=== PATIENT | male | born 1965 | race Two or more races ===

== ENCOUNTER 2023-07-12 08:12 | Outpatient (AMB) | payer OTHER, SELFPAY ==
[2023-07-12 08:14] VITALS: PULSE 68; O2SAT 99; BMI 29.2
--- NOTE | 2023-07-12 08:14 | MHC.OFFVIS ---
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 It started about 6 mths ago . It is mostly with action and posture. 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 No tremors in his left hand or legs or head or voice. No weakness. It is affecting his job .No difficulty eating with hands or holding a cup.No difficulty with dressing or personal hygiene. No known F h/o tremors. He has chronic sleep issues, has loud snoring, witnessed apneas and gasping arousals. He had asleep study many years ago- thinks it was abnormal [facility] Medical History (Updated 07/12/23 @ 08:53 by Torri Lawson MD) Coarse tremors Hypersomnia Witnessed apneic spells Loud snoring Asthma Esophagitis HTN (hypertension) Surgical History Hx of vasectomy Hx of appendectomy Family History Father Colon cancer Hypercholesteremia Hypertension Diabetes Social History Alcohol intake: current Alcohol intake frequency: holidays/special occasions only Patient Tobacco Use Status: Never used Tobacco Use of substances other than those prescribed or required for medical reasons: No Review of Systems Const Denies no additional complaints and Reports snoring Eyes Reports blurry vision Resp Reports cough and Reports snoring Neuro Reports memory loss Psych Reports memory loss Physical Exam Vital Signs: Last Vital Signs Pulse 68 07/12/23 08:14 Pulse Ox 99 07/12/23 08:14 Oxygen Delivery Method Room Air 07/12/23 08:14 BMI result Body Mass Index 29.2 Const General: cooperative, healthy appearing, comfortable and no acute distress Nutritional Appearance: average body habitus Orientation/consciousness: patient oriented x3 Eyes Pupils: Equal, round and reactive pupils present Neck Neck: Yes no meningeal signs Neuro Other: no tremors on exam today Mild increased tone in right UE Normal facial expression and blink Gait normal Mallampatti grade 4 General: patient oriented x3, moves all extremities, no meningeal signs and no focal motor deficits Cranial nerves: Yes Facial sensation intact/muscles of mastication intact, Yes Equal, round and reactive pupils present, Yes Bilaterally intact EOM present, Yes Nystagmus not present, Yes Normal facial strength present, Yes Midline tongue present, Yes Symmetric palate elevation present and Yes Ability to bilaterally elevate shoulders present Cognition (Neuro): normal cognition Gait exam (Neuro): Normal gait present Motor exam (neuro): 5/5 motor strength present throughout and Normal motor muscle tone present throughout Deep tendon reflexes (DTR's): Right triceps reflex intensity grade: 2+, Left triceps reflex intensity grade: 2+, Rt Biceps (C5, C6): 2+, Left biceps reflex intensity grade: 2+, Right brachioradialis reflex intensity grade: 2+, Left brachioradialis reflex intensity grade: 2+, Right patellar reflex intensity grade: 2+ and Left patellar reflex intensity grade: 2+ Coordination: [id number] test normal Assessment & Plan Assessment & Plan (1) Coarse tremors: Code(s): G25.2 - Other specified forms of tremor (2) Hypersomnia: Code(s): G47.10 - Hypersomnia, unspecified (3) Loud snoring: Code(s): R06.83 - Snoring (4) Witnessed apneic spells: Code(s): R06.81 - Apnea, not elsewhere classified Plan I will trial him on propranolol 10-20 mg qam Hold amlodipine Monitor BP Home sleep test to r/o sleep apnea. Orders: Orders RT home sleep study Today G47.10 - Hypersomnia, unspecified, R06.81 - Apnea, not elsewhere classified, R06.83 - Snoring Medications: New propranolol 1-2 tabs orally qam; 60 tabs 3RF Coding Level of Care Code New Pt Level 4 (18557) Diagnoses Coarse tremors G25.2 Hypersomnia G47.10 Loud snoring R06.83 Witnessed apneic spells R06.81
== END 2023-07-12 08:56 | disposition home or self-care (01) ==
PROVIDERS: Visit Provider Psychiatry & Neurology Neurology
DX: G25.2 Other specified forms of tremor (principal); G47.10 Hypersomnia, unspecified; R06.83 Snoring; R06.81 Apnea, not elsewhere classified
CPT/HCPCS: 99204

== ENCOUNTER → 2023-07-12 08:12 | Outpatient (BNVA) | payer OTHER, SELFPAY | PROVIDERS: Visit Provider Psychiatry & Neurology Neurology | DX: G25.2 Other specified forms of tremor (principal); G47.10 Hypersomnia, unspecified; R06.83 Snoring; R06.81 Apnea, not elsewhere classified | CPT/HCPCS: 99202 ==

== ENCOUNTER → 2023-08-21 14:51 | Outpatient (REF) | payer OTHER, SELFPAY | LOC: HO.SL 14:51 | PROVIDERS: PCP Internal Medicine; Visit Provider Psychiatry & Neurology Neurology | DX: R06.83 Snoring (principal); G47.10 Hypersomnia, unspecified; G47.33 Obstructive sleep apnea (adult) (pediatric) | CPT/HCPCS: 95806 ==

== ENCOUNTER → 2023-08-21 14:58 | Outpatient (BNV) | payer SELFPAY | PROVIDERS: PCP Internal Medicine; Visit Provider Psychiatry & Neurology Neurology | DX: G47.33 Obstructive sleep apnea (adult) (pediatric) (principal) | CPT/HCPCS: 95806 ==

== ENCOUNTER 2023-11-07 09:12 | Outpatient (AMB) | payer OTHER, SELFPAY ==
--- NOTE | 2023-11-07 09:13 | MHC.OFFVIS ---
Intake Vital Signs 11/07/23 09:15 Height 5 ft 7 in Weight 189 lb BMI 29.6 BP 172/102 H Blood Pressure Location Rt brachial Position Sitting Respiration 17 Pulse 67 Pulse Source Pulse Oximeter Pulse Oximetry (%) 98 Oxygen Delivery Method Room Air Intake Visit Reasons: 3m f/u Tremors - Unable to Conf VM Full Intake Note: Pt presents to the office for a 3 month follow up for tremors. Pt reports his sx are slightly worse than at his last visit. 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 It started about 9 mths ago . His tremors are the same. It is mostly with action and posture. 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 No tremors in his left hand or legs or head or voice. No weakness. It is affecting his job .No difficulty eating with hands or holding a cup.No difficulty with dressing or personal hygiene. No known F h/o tremors. His Home sleep test was c/w mild sleep apnea AHI was 11 and oxygen chris was 88%.He is waiting for his CPAP. [facility] Medical History (Updated 11/07/23 @ 09:37 by Torri Lawson MD) Obstructive sleep apnea hypopnea, mild Coarse tremors Hypersomnia Witnessed apneic spells Loud snoring Asthma Esophagitis HTN (hypertension) Surgical History Hx of vasectomy Hx of appendectomy Family History Father Colon cancer Hypercholesteremia Hypertension Diabetes Social History Alcohol intake: current Alcohol intake frequency: holidays/special occasions only Patient Tobacco Use Status: Never used Tobacco Physical Exam Vital Signs: Last Vital Signs Pulse 67 11/07/23 09:15 Resp 17 11/07/23 09:15 BP 172/102 H 11/07/23 09:15 Pulse Ox 98 11/07/23 09:15 Oxygen Delivery Method Room Air 11/07/23 09:15 BMI result Body Mass Index 29.6 Const General: cooperative, healthy appearing, comfortable and no acute distress Nutritional Appearance: average body habitus Orientation/consciousness: patient oriented x3 Eyes Pupils: Equal, round and reactive pupils present Neck Neck: Yes no meningeal signs Neuro Other: no tremors on exam today Mild increased tone in right UE Normal facial expression and blink Gait normal Mallampatti grade 4 General: patient oriented x3, moves all extremities, no meningeal signs and no focal motor deficits Cranial nerves: Yes Facial sensation intact/muscles of mastication intact, Yes Equal, round and reactive pupils present, Yes Bilaterally intact EOM present, Yes Nystagmus not present, Yes Normal facial strength present, Yes Midline tongue present, Yes Symmetric palate elevation present and Yes Ability to bilaterally elevate shoulders present Cognition (Neuro): normal cognition Gait exam (Neuro): Normal gait present Motor exam (neuro): 5/5 motor strength present throughout and Normal motor muscle tone present throughout Coordination: [id number] test normal Assessment & Plan Assessment & Plan (1) Coarse tremors: Code(s): G25.2 - Other specified forms of tremor (2) Obstructive sleep apnea hypopnea, mild: Code(s): G47.33 - Obstructive sleep apnea (adult) (pediatric) Plan: AHI 11 O2 chris 88% Plan Increase propranolol to ER 60mg qd Monitor BP Start AutoPAP 5-20 - patient will call Home care company Medications: New propranolol ER 60 mg PO DAILY 30 caps 6RF Discontinued propranolol Discontinued Reason: Doctor's Order 1-2 tabs orally qam; 60 tabs 3RF Coding Level of Care Code Est Pt Level 4 (62856) Diagnoses Coarse tremors G25.2 Obstructive sleep apnea hypopnea, mild G47.33
[2023-11-07 09:15] VITALS: BP 172/102; PULSE 67; RESP 17; O2SAT 98; BMI 29.6
== END 2023-11-07 09:40 | disposition home or self-care (01) ==
PROVIDERS: PCP Internal Medicine; Visit Provider Psychiatry & Neurology Neurology
DX: G25.2 Other specified forms of tremor (principal); G47.33 Obstructive sleep apnea (adult) (pediatric)
CPT/HCPCS: 99214

== ENCOUNTER → 2023-11-07 09:12 | Outpatient (BNVA) | payer OTHER, SELFPAY | PROVIDERS: PCP Internal Medicine; Visit Provider Psychiatry & Neurology Neurology | DX: G25.2 Other specified forms of tremor (principal); G47.33 Obstructive sleep apnea (adult) (pediatric) | CPT/HCPCS: 99212 ==

== ENCOUNTER 2024-03-09 08:21 | Outpatient (AMB) | payer OTHER, SELFPAY ==
--- NOTE | 2024-03-09 08:27 | A.OFFVIS_ITS ---
Vital Signs 03/09/24 08:28 Height 5 ft 7 in Weight 189 lb BMI 29.6 BP 156/90 H Blood Pressure Location Rt brachial Position Sitting Respiration 16 Pulse 71 Pulse Source Pulse Oximeter Pulse Oximetry (%) 99 Oxygen Delivery Method Room Air Intake Visit Reasons: 4 mnts f/u - Conf w/address Intake Note: Pt presents for 3 month follow up for coarse tremors. 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 His tremors are better with propranolol. It is mostly with action and posture. 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 No weakness. It is affecting his job .No difficulty eating with hands or holding a cup.No difficulty with dressing or personal hygiene. No known F h/o tremors. His Home sleep test was c/w mild sleep apnea AHI was 11 and oxygen chris was 88%.He started using CPAP - and is feeling better. [facility] Medical History Obstructive sleep apnea hypopnea, mild Coarse tremors Hypersomnia Witnessed apneic spells Loud snoring Asthma Esophagitis HTN (hypertension) Surgical History Hx of vasectomy Hx of appendectomy Family History Father Colon cancer Hypercholesteremia Hypertension Diabetes Social History Alcohol intake: current Alcohol intake frequency: holidays/special occasions only Patient Tobacco Use Status: Never used Tobacco Physical Exam Vital Signs: Last Vital Signs Pulse 71 03/09/24 08:28 Resp 16 03/09/24 08:28 BP 156/90 H 03/09/24 08:28 Pulse Ox 99 03/09/24 08:28 Oxygen Delivery Method Room Air 03/09/24 08:28 BMI result Body Mass Index 29.6 Const General: cooperative, healthy appearing, comfortable and no acute distress Nutritional Appearance: average body habitus Orientation/consciousness: patient oriented x3 Eyes Pupils: Equal, round and reactive pupils present Neck Neck: Yes no meningeal signs Neuro Other: no tremors on exam today Mild increased tone in right UE Normal facial expression and blink Gait normal Mallampatti grade 4 General: patient oriented x3, moves all extremities, no meningeal signs and no focal motor deficits Cranial nerves: Yes Facial sensation intact/muscles of mastication intact, Yes Equal, round and reactive pupils present, Yes Bilaterally intact EOM present, Yes Nystagmus not present, Yes Normal facial strength present, Yes Midline tongue present, Yes Symmetric palate elevation present and Yes Ability to bilaterally elevate shoulders present Cognition (Neuro): normal cognition Gait exam (Neuro): Normal gait present Motor exam (neuro): 5/5 motor strength present throughout and Normal motor muscle tone present throughout Coordination: [id number] test normal Assessment & Plan Assessment & Plan (1) Coarse tremors: Code(s): G25.2 - Other specified forms of tremor Category: Medical (2) Obstructive sleep apnea hypopnea, mild: Code(s): G47.33 - Obstructive sleep apnea (adult) (pediatric) Category: Medical Plan: AHI 11 O2 chris 88% Plan Continue propranolol to ER 60mg qd Monitor BP AutoPAP 5-20 - patient will call Home care company Coding Level of Care Code Est Pt Level 4 (95439) Diagnoses Coarse tremors G25.2 Obstructive sleep apnea hypopnea, mild G47.33
[2024-03-09 08:28] VITALS: BP 156/90; PULSE 71; RESP 16; O2SAT 99; BMI 29.6
== END 2024-03-09 09:02 | disposition home or self-care (01) ==
PROVIDERS: PCP Internal Medicine; Visit Provider Psychiatry & Neurology Neurology
DX: G25.2 Other specified forms of tremor (principal); G47.33 Obstructive sleep apnea (adult) (pediatric)
CPT/HCPCS: 99214

== ENCOUNTER → 2024-03-09 08:21 | Outpatient (BNVA) | payer OTHER, SELFPAY | PROVIDERS: PCP Internal Medicine; Visit Provider Psychiatry & Neurology Neurology | DX: G25.2 Other specified forms of tremor (principal); G47.33 Obstructive sleep apnea (adult) (pediatric) | CPT/HCPCS: 99212 ==